=== PATIENT | male | born 1980 ===

== ENCOUNTER 2020-04-04 14:11 | Outpatient (REF) | payer BC, SELFPAY ==
[2020-04-07 13:15] LABS: SARS-CoV-2 RNA Undetected (Undetected); SARS-CoV-2 Specimen Source Nasal
== END 2020-04-04 14:31 ==
LOC: NCHCN 14:11
PROVIDERS: PCP Physician Assistant Medical; Visit Provider Nurse Practitioner Family
DX: Z11.59 Encounter for screening for other viral diseases (principal)
CPT/HCPCS: U0003